=== PATIENT | male | born 1995 | race American Indian/Alaskan Native ===

== ENCOUNTER 2022-02-13 22:44 | Emergency (ER) | payer SELFPAY ==
[2022-02-13 23:00] VITALS: BP 130/85
== END 2022-02-14 01:04 | disposition left against medical advice (07) ==
LOC: ED 22:44
DX: R51.9 Headache, unspecified (principal); Z53.21 Procedure and treatment not carried out due to patient leaving prior to being seen by health care provider; Y04.8XXA Assault by other bodily force, initial encounter; Y93.89 Activity, other specified; Y92.89 Other specified places as the place of occurrence of the external cause; Y99.8 Other external cause status